=== PATIENT | male | born 1975 | race Two or more races ===

== ENCOUNTER 2018-10-06 20:37 | Emergency (ER) | payer MEDICAID ==
[~2018-10-06] VITALS: Ht 188 cm; Wt 127.3 kg
[2018-10-06 21:05] LABS: GLUCOSE,POINT OF CARE 185 MG/DL (70-110)
[2018-10-06] MEDS ORDERED: METF-960 PO (21:11)
[2018-10-06] MEDS ORDERED: INSLAN SQ (21:11)
[2018-10-06] MEDS ORDERED: GABA-531 PO (21:11)
[2018-10-06] MEDS ORDERED: GLIP10 PO (21:11)
[2018-10-06 21:55] VITALS: BP 158/88
== END 2018-10-06 22:44 | disposition home or self-care (01) ==
LOC: EDUNIT# 20:37 → EMS 20:42
DX: S90.121A Contusion of right lesser toe(s) without damage to nail, initial encounter (principal); L84 Corns and callosities; E11.9 Type 2 diabetes mellitus without complications; J45.909 Unspecified asthma, uncomplicated; Z79.899 Other long term (current) drug therapy; X58.XXXA Exposure to other specified factors, initial encounter; Y93.89 Activity, other specified; Y92.89 Other specified places as the place of occurrence of the external cause; Y99.8 Other external cause status